=== PATIENT | male | born 1950 | race Caucasian/White ===

== ENCOUNTER 2016-06-13 16:17 | Emergency (ER) | payer OTHER ==
[2016-06-13 16:24] VITALS: BP 175/81; PULSE 98; RESP 20; TEMP 98.6; O2SAT 96
--- NOTE | 2016-06-13 16:42 | EDPHY ---
H & P Time Seen by Provider: 06/13/16 16:41 HPI/ROS: CHIEF COMPLAINT: Low back pain, left leg pain HISTORY OF PRESENT ILLNESS: This patient is a 66 year old male with a history of spinal stenosis who presents to the Emergency Department complaining of waxing and waning low back and left leg pain beginning acutely ten days ago and improving over time until yesterday, when his pain presented again at severity 7 /10. He is unsure of what caused the onset of his symptoms. He describes the location of pain as variable from his calf, thigh, and low back. He has been using ice and Aleve to treat without significant improvement. He denies any bowel or urinary complaints. He is followed by Dr. Macario and presents with an MRI disc from two years ago. Medical history also includes insulin-dependent diabetes. REVIEW OF SYSTEMS: Constitutional: No fever, no chills Eyes: No visual changes ENT: No sore throat Respiratory: No cough, no shortness of breath Cardiac: No chest pain Gastrointestinal: No nausea, no vomiting, no abdominal pain Genitourinary: No hematuria, no dysuria Musculoskeletal: +low back pain, +left leg pain, no swelling Skin: No rash Neurological: No headache, no numbness, no weakness Psychiatric: No depression Past Medical/Surgical History: Spinal stenosis. Type 2 diabetes (insulin). Social History: Never smoked. Single. Smoking Status: Never smoked Physical Exam: General Appearance: Alert, appears in pain Eyes: Pupils equal and round, no conjunctival pallor ENT, Mouth: Mucous membranes moist Neck: Normal inspection Back: Normal inspection, Left lumbar paraspinous tenderness, no midline tenderness Respiratory: Lungs are clear to auscultation Cardiovascular: Regular rate and rhythm Gastrointestinal: Abdomen is soft and non- tender Neurological: A&O, nonfocal, normal motor strength bilaterally to lower extremities, including dorsiflexion of the ankle and 1st toe, normal gait Skin: Warm and dry, no rash Extremities: Nontender, no pedal edema Psychiatric: Mood and affect normal Constitutional: Initial Vital Signs Temperature (C) 37 C 06/13/16 16:20 Heart Rate 98 06/13/16 16:20 Respiratory Rate 20 06/13/16 16:20 Blood Pressure 175/81 H 06/13/16 16:20 O2 Sat (%) 96 06/13/16 16:20 Allergies/Adverse Reactions: Penicillins Allergy (Verified 08/23/10 15:20) Home Medications: Medication Instructions Recorded Cephalexin [Keflex] 500 mg PO QID #40 cap 08/19/10 Ibuprofen [Motrin (*)] 600 mg PO 08/19/10 Insulin Glargine [Lantus Insulin 60 unit SQ HS 08/19/10 Vial] Lisinopril/Hctz 10/12.5 mg 0 tab PO 08/19/10 [Prinzide] Metformin HCl [Metformin Hcl Er] 2 g PO 08/19/10 SIMVASTATIN [Zocor] 40 mg PO 08/19/10 Sulfamethox/Trimeth 800/160 Mg 1 tab PO BID 10 Days 08/19/10 [Bactrim DS] Hydrocodone/APAP 5/325 [[place] 1 - 2 tab PO Q4H PRN #15 tab 06/13/16 5/325] Medical Decision Making ED Course/Re-evaluation: 1 tab PO Vicodin administered for pain. I discussed with the patient that long-term treatment of his symptoms can best be addressed by Dr. Macario. He will call to schedule an appointment while in the ED. He will be discharged home in good condition with a pre-pack and script for Vicodin and customary return precautions. He is agreeable to this. - Data Points Medications Given: Discontinued Medications Hydrocodone Bitart/Acetaminophen ([place] 5/325) 1 tab PO EDNOW ONE Stop: 06/13/16 16:58 Last Admin: 06/13/16 17:14 Dose: 1 tab Hydrocodone Bitart/Acetaminophen ([place] 5/325mg Prepack#6) 1 btl TAKEHOME EDNOW ONE Stop: 06/13/16 16:58 Last Admin: 06/13/16 17:13 Dose: 1 btl Departure - Departure Disposition: Home, Routine, Self-Care Clinical Impression: Lumbar radicular pain Condition: Good Instructions: Hydrocodone/Acetaminophen (By mouth), Lumbar Radiculopathy (ED) Additional Instructions: 1. Take Aleve every 12 hours as needed for pain OR take Ibuprofen every 6 hours as needed for pain. Do not take both. 2. Take Vicodin as prescribed, as needed for severe pain. 3. Call to schedule an appointment with Dr. Macario as soon as possible. 4. Return to the Emergency Department with uncontrollable pain, bowel or urinary incontinence, or other serious complaints. Referrals: Del Macario MD [Medical Doctor] - As per Instructions Prescriptions: Hydrocodone/APAP 5/325 [[place] 5/325] 1 - 2 tab PO Q4H PRN #15 tab PRN Reason: Pain, Moderate Report Scribed for: Lori Call Report Scribed by: Rachel Simmons Date of Report: 06/13/16 Time of Report: 16:42 Physician Review and Approval Statement: 06/13/16 16:42 Portions of this note were transcribed by a medical records director. I personally performed a history, physical exam, medical decision making, and confirmed accuracy of information the transcribed note.
[2016-06-13] MEDS ORDERED: HYDROCODONE/APAP 5/325 TAB PO ONE (16:57)
[2016-06-13] MEDS ORDERED: HYDROCOD/APAP 5/325 PREPACK#6 BTL TAKEHOME ONE (16:57)
== END 2016-06-13 17:15 | disposition home or self-care (01) ==
DX: M54.16 Radiculopathy, lumbar region (principal); E11.9 Type 2 diabetes mellitus without complications; Z79.4 Long term (current) use of insulin

== ENCOUNTER 2017-03-23 11:23 | Emergency (ER) | payer OTHER ==
[2017-03-23 11:34] VITALS: RESP 18; TEMP 97.5
--- NOTE | 2017-03-23 11:35 | EDPHY ---
H & P Stated Complaint: blurred vision, low blood sugar, from urgent care, HPI/ROS: CHIEF COMPLAINT: Blurred vision, hypoglycemia HISTORY OF PRESENT ILLNESS: The patient is a 67 y/o male with a history of diabetes complaining of blurred vision and dizziness that began while driving to the grocery store this morning. He felt like his right eye was "jumping" back and forth and he became scared he was having a stroke so he drove to urgent care. Urgent care transferred him to the ED via EMS due to a blood sugar level of 50. He tells me he's been feeling poorly with a cough and a reduced appetite for the last week and didn't check his sugar this morning. He saw his PCP for preoperative evaluation for upcoming lumbar spine surgery and had a normal chest x-ray at that time. This morning, he took his long-acting insulin and did not eat. He currently is feeling quite good after eating in the ED and believes all his symptoms were related to low blood glucose. He denies fever, sore throat, chest pain, dyspnea, headache, dysuria, abdominal pain, vomiting, diarrhea. REVIEW OF SYSTEMS: A ten point review of systems was performed and is negative with the exception of the items mentioned in the HPI. Past medical history: 1. Diabetes - insulin dependent 2. Spinal stenosis 3. SVT 4. Hypertension 5. Hypercholesterolemia Past surgical history: Noncontributory Family history: Noncontributory Social history: Lives in [place]. Employed. Single. PCP: [facility]. General Appearance: Alert. Vital signs reviewed. Eyes: Pupils equal and round, no conjunctival injection, no discharge. Anicteric. ENT, Mouth: Mucous membranes are moist, no oropharyngeal erythema or edema. Neck: No lymphadenopathy, supple. Respiratory: Lungs are clear to auscultation; no wheezes, rales, or rhonchi. Cardiovascular: Regular rate and rhythm; no murmur, rub, or gallop. Gastrointestinal: Abdomen is soft and nontender, no masses or organomegaly, bowel sounds normal. Easily reducible umbilical hernia. Skin: Warm and dry, no rashes on exposed skin, normal color. Back: Nontender to palpation over the thoracolumbar spine. No CVAT. Extremities: No lower extremity edema, no calf tenderness or swelling. Neurological: Alert and oriented. Moving all four extremities easily and equally. Cranial nerves II through XII are examined and are intact. Strength is 5 over 5 bilaterally with testing of all major motor groups. Sensation is intact to light touch over all 4 extremities. Psychiatric: Normal affect. - Personal History Current Tetanus Diphtheria and Acellular Pertussis (TDAP): Yes Tetanus Vaccine Date: 2008 - Medical/Surgical History Hx Asthma: No Hx Chronic Respiratory Disease: No Hx Diabetes: Yes Hx Cardiac Disease: Yes Hx Renal Disease: Yes Hx Cirrhosis: No Hx Alcoholism: No Hx HIV/AIDS: No Hx Splenectomy or Spleen Trauma: No Other PMH: diabetes type 2, SVT, stage 3 kidney disease. ortho surgeries - Social History Smoking Status: Never smoked Constitutional: Initial Vital Signs Temperature (C) 36.4 C 03/23/17 11:28 Heart Rate 73 03/23/17 11:28 Respiratory Rate 18 03/23/17 11:28 Blood Pressure 118/60 03/23/17 11:28 O2 Sat (%) 97 03/23/17 11:28 O2 Delivery Mode Room Air Allergies/Adverse Reactions: No Known Allergies Allergy (Unverified 03/23/17 11:28) Home Medications: Medication Instructions Recorded Ascorbic Acid [Vitamin C 500 mg 1,000 mg PO DAILY 03/25/17 (*)] Aspirin [Aspirin 81mg (*)] 81 mg PO DAILY 03/25/17 Cholecalciferol Vit D3 [Vitamin D3 4,000 units PO DAILY 03/25/17 (*)] Dulaglutide [Trulicity] 1.5 mg SQ Q7D 03/25/17 Fenofibric Acid (Choline) 135 mg PO DAILY 03/25/17 [TRILIPIX] Glucosamine Sulfate Dipot Chlr 1,000 mg PO DAILY 03/25/17 [Glucosamine] Herbals/Supplements -Info Only 1 ea PO DAILY 03/25/17 Hydrochlorothiazide [HCTZ (*)] 25 mg PO DAILY 03/25/17 Insulin Glargine,Hum.rec.anlog 50 unit SQ BID 03/25/17 [Lantus Solostar] Insulin Lispro [HumaLOG LISPRO] 0 unit SC AD 03/25/17 Lisinopril [Zestril 40 mg (*)] 40 mg PO BID 03/25/17 Loratadine 10 mg PO DAILY 03/25/17 Ranitidine HCl [Zantac] 150 mg PO DAILY 03/25/17 Rosuvastatin Calcium [Crestor] 10 mg PO DAILY 03/25/17 metFORMIN SR [Glucophage XR 500 mg 500 mg PO BID 03/25/17 (*)] Medical Decision Making ED Course/Re-evaluation: This is a 67 y/o male with a history of insulin-dependent diabetes who presents for evaluation of vision changes and dizziness that occurred while driving this morning. He used his long-acting insulin this morning and did not eat. His initial BGL here was 45. I assessed him after eating and he is now feeling back to normal. He has a completely normal neuro exam. Apart from hypoglycemia, labs are unremarkable. EKG normal. Patient feels ready to go home at this time. Plan for repeat BGL and if normal, discharge home. The 12 lead EKG was interpreted by myself. Sinus mechanism rate 72. See hard copy and/or "tracemaster" electronic copy for interpretation. Repeat BGL is 124. He was observed in the ED for over three hours with no change in mentation, no symptoms reported. Patient will be discharged home with standard hypoglycemia care and follow up instructions. Return precautions discussed. He is comfortable with plan for discharge. I feel that his altered mental status and blurred vision was secondary to hypoglycemia. I do not suspect infection, CVA/TIA, electrolyte imbalance, intoxicants. - Data Points Laboratory Results: Laboratory Results 03/23/17 12:35 03/23/17 12:35 Departure - Departure Disposition: Home, Routine, Self-Care Clinical Impression: Hypoglycemia Condition: Good Instructions: Hypoglycemia in a Person with Diabetes (ED) Additional Instructions: 1. Eat regularly. 2. Check your blood sugar consistently throughout the day. 3. Use all medications as directed. 4. Follow up with your primary care provider for any unimproved symptoms over the next couple days. 5. Return to the ED for severe headache, weakness or numbness on one side of your body, vision changes, speech difficulty, confusion, or other worsening of condition. Referrals: Kai Gaona [Doctor of Osteopathy] - As per Instructions Report Scribed for: Janay Washington Report Scribed by: Bridget Weinberg Date of Report: 03/23/17 Time of Report: 13:34 Physician Review and Approval Statement: 03/23/17 11:35 Portions of this note were transcribed by the ophthalmic medical technician. I, Dr. Janay Washington, personally performed the history, physical exam, and medical decision- making; and confirmed the accuracy of the information in the transcribed note.
[2017-03-23 12:42] LABS: PLATELET COUNT 164 10^3/uL (150-400)
--- NOTE | 2017-03-23 12:43 | CPEKG ---
Heart Rate: 72 RR Interval: 833 P-R Interval: 200 QRSD Interval: 92 QT Interval: 408 QTC Interval: 447 P Royal: 64 QRS Royal: 12 T Wave Royal: 22 EKG Severity - NORMAL ECG - EKG Impression: SINUS RHYTHM Electronically Signed By: Janay Washington 23-Mar-2017 15:00:17
[2017-03-23 12:46] VITALS: O2SAT 99
[2017-03-23 14:42] VITALS: BP 167/87; PULSE 79
== END 2017-03-23 14:42 | disposition home or self-care (01) ==
LOC: EDUNIT#
DX: E11.649 Type 2 diabetes mellitus with hypoglycemia without coma (principal); I10 Essential (primary) hypertension; Z79.4 Long term (current) use of insulin; Z79.82 Long term (current) use of aspirin; Z79.84 Long term (current) use of oral hypoglycemic drugs

== ENCOUNTER 2017-04-24 09:45 | Observation (INO) | payer OTHER ==
[2017-07-22] MEDS ORDERED: ceFAZolin 2 GM/SWFI 2 GM/20 ML SYR IVP ONE (05:46)
[2017-07-22] MEDS ORDERED: GABAPENTIN 300 MG CAP PO ONE (05:46)
[2017-07-22] MEDS ORDERED: ACETAMINOPHEN 500 MG TAB PO ONE (05:46)
[2017-07-22] MEDS ORDERED: LIDOCAINE 1% 2 ML INJ ID PRN (05:48)
[2017-07-22] MEDS ORDERED: LR 1,000 ML IV ONE (05:48)
--- NOTE | 2017-07-22 06:26 | PDANEPAE ---
ANE History of Present Illness L3-4, L4-5 laminectomy ANE Past Medical History - Cardiovascular History Hx Hypertension: Yes Hx Arrhythmias: Yes Hx Chest Pain: No Hx Coronary Artery / Peripheral Vascular Disease: Yes Hx CHF / Valvular Disease: No Hx Palpitations: No Cardiovascular History Comment: SVT - Pulmonary History Hx COPD: No Hx Asthma/Reactive Airway Disease: No Hx Recent Upper Respiratory Infection: No Hx Oxygen in Use at Home: No Hx Sleep Apnea: Yes Sleep Apnea Screening Result - Last Documented: Positive Pulmonary History Comment: BETI USES C-PAP INSTRUCTED TO BRING DOS - Neurologic History Hx Cerebrovascular Accident: No Hx Seizures: No Hx Dementia: No - Endocrine History Hx Diabetes: Yes Hypothyroid: No Hyperthyroid: No Obesity: severe Endocrine History Comment: IDDM CHECKS BS TWICE A DAY - Renal History Hx Renal Disorders: Yes Renal History Comment: CHRONIC RENAL INSUFFICIENCY STAGE 3 - Liver History Hx Hepatic Disorders: Yes Hepatic History Comment: HEP A AGE 9 - Neurological & Psychiatric Hx Hx Neurological and Psychiatric Disorders: No - Cancer History Hx Cancer: No - Congenital Disorder History Hx Congenital Disorders: No - GI History GERD: severe Hx Gastrointestinal Disorders: Yes Gastrointestinal History Comment: REFLUX - Other Health History Other Health History: DIFFICULT TO SLEEP ON STOMACH TENDS TO SLEEP ON HIS SIDES. IMANI SHLDR ISSUES HAS RT TORN RTC. SPONDYLOSIS,CDD,DDD - Chronic Pain History Chronic Pain: Yes (IMANI SHLDRS,TINGLING LOWER EXT AND LT LEG PAIN,INTERMITTENT BALANCE ISSUES) - Surgical History Prior Surgeries: LT ROTATOR CUFF 2014. LT SHLDR POST I&D. RT FOOT BONE RECONSTRUCTION FOOT. ANE Review of Systems Review of Systems: - Exercise capacity METS (RN): 4 METS ANE Patient History - Allergies Allergies/Adverse Reactions: No Known Allergies Allergy (Unverified 03/23/17 11:28) - Home Medications Home Medications: Ascorbic Acid [Vitamin C 500 mg (*)] 1,000 mg PO DAILY 03/25/17 [Last Taken ] Aspirin [Aspirin 81mg (*)] 81 mg PO DAILY 03/25/17 [Last Taken 07/15/17] Cholecalciferol Vit D3 [Vitamin D3 (*)] 5,000 units PO DAILY 03/25/17 [Last Taken 07/16/17] Dulaglutide [Trulicity] 1.5 mg SQ Q7D 03/25/17 [Last Taken 07/20/17] Fenofibric Acid (Choline) [TRILIPIX] 135 mg PO DAILY 03/25/17 [Last Taken ] Glucosamine Sulfate Dipot Chlr [Glucosamine] 1,000 mg PO DAILY 03/25/17 [Last Taken 07/16/17] Herbals/Supplements -Info Only 1 ea PO DAILY 03/25/17 [Last Taken 07/16/17] Hydrochlorothiazide [HCTZ (*)] 25 mg PO DAILY 03/25/17 [Last Taken 07/21/17 09: 00] Insulin Lispro [HumaLOG LISPRO] 0 unit SC AC 03/25/17 [Last Taken 07/21/17 19:00 ] Lisinopril [Zestril 40 mg (*)] 40 mg PO BID 03/25/17 [Last Taken 07/21/17 22:00] Loratadine 10 mg PO DAILY 03/25/17 [Last Taken 07/21/17 09:00] Ranitidine HCl [Zantac] 150 mg PO BID 03/25/17 [Last Taken 07/20/17] Rosuvastatin Calcium [Crestor] 10 mg PO DAILY 03/25/17 [Last Taken 07/21/17 09: 00] metFORMIN SR [Glucophage XR 500 mg (*)] 500 mg PO BID 03/25/17 [Last Taken 07/20] Atenolol [Tenormin 25 mg (*)] 25 mg PO DAILY 07/17/17 [Last Taken 07/21/17 09:00 ] Tresiba Flextouch U-100 45 units SC BID 07/17/17 [Last Taken 07/22/17 04:00] - NPO status NPO Since - Liquids (Date): 07/21/17 NPO Since - Liquids (Time): 22:00 NPO Since - Solids (Date): 07/21/17 NPO Since - Solids (Time): 21:00 - Smoking Hx Smoking Status: Never smoked - Family Anes Hx Family Hx Anesthesia Complications: NEG ANE Labs/Vital Signs - Vital Signs Blood Pressure: 150/71 Heart Rate: 84 Respiratory Rate: 18 O2 Sat (%): 96 Height: 173.99 cm Weight: 117.934 kg ANE Physical Exam - Airway Neck exam: decreased ROM Mallampati Score: Class 2 Mouth exam: normal dental/mouth exam (lower front caps) - Pulmonary Pulmonary: clear to auscultation - Cardiovascular Cardiovascular: regular rate and rhythym - ASA Status ASA Status: III ANE Anesthesia Plan Anesthesia Plan: general endotracheal anesthesia (Increased risk of perioperative complications discussed. Questions answered.)
--- NOTE | 2017-07-22 06:27 | PDHPUP ---
History & Physical Update H&P update statement: This history and physical update is based on an assessment of the patient which was completed after admission or registration (within 24 hours), but prior to the surgery/procedure. H&P update: H&P reviewed & patient examined, no change in patient's condition since H&P completed (Consents signed and site marked. All questions answered. )
[2017-07-22] MEDS ORDERED: THROMBIN (BOVINE) 20,000 UNIT VIAL TP ONE ×2 (06:36→08:59)
[2017-07-22] MEDS ORDERED: CHLORHEXIDINE GLUC HIBICLENS 118 ML BTL TP ONE (06:36)
[2017-07-22] MEDS ORDERED: BUPIVACAINE 0.25% 30 ML SDV ONE (06:37)
[2017-07-22] MEDS ORDERED: BACITRACIN 50,000 UNITS/10 ML SYR IRR ONE ×2 (06:37→09:15)
[2017-07-22] MEDS ORDERED: MIDAZOLAM 2 MG/2 ML VIAL ONE (07:13)
[2017-07-22] MEDS ORDERED: KETAMINE 200 MG/20 ML VIAL ONE (07:14)
[2017-07-22] MEDS ORDERED: PROPOFOL/EMULSION 500 MG/50 ML BOTTLE IV ONE (07:14)
[2017-07-22] MEDS ORDERED: fentaNYL 250 MCG/5 ML INJ ONE (07:14)
[2017-07-22] MEDS ORDERED: RANITIDINE 50 MG/2 ML VIAL ONE (07:15)
[2017-07-22] MEDS ORDERED: ROCURONIUM 50 MG/5 ML VIAL ONE (07:15)
[2017-07-22] MEDS ORDERED: DEXAMETHASONE 4 MG/ML VIAL ONE (07:15)
[2017-07-22] MEDS ORDERED: PHENYLEPHRINE 10 MG/ML SDV ONE (07:26)
[2017-07-22] MEDS ORDERED: SURGIFLO MATRIX KIT WITH THROMBIN 8 ML TP ONE (08:54)
[2017-07-22] MEDS ORDERED: PROPOFOL 200 MG/20 ML VIAL ONE (08:55)
[2017-07-22] MEDS ORDERED: HYDROmorphONE/DILAUDID 2 MG/ML INJ IVP PRN (09:35)
[2017-07-22] MEDS ORDERED: ONDANSETRON 4 MG/2 ML VIAL IVP PRN ×2 (09:35→10:15)
[2017-07-22] MEDS ORDERED: fentaNYL 100 MCG/2 ML INJ IVP PRN (09:35)
[2017-07-22] MEDS ORDERED: NALOXONE HCL 0.4 MG/ML INJ IVP PRN (09:35)
[2017-07-22] MEDS ORDERED: ONDANSETRON 4 MG/2 ML VIAL ONE (09:41)
[2017-07-22] MEDS ORDERED: NEOSTIGMINE METHYLSULFATE 3 MG/3 ML SYR ONE (09:42)
[2017-07-22] MEDS ORDERED: GLYCOPYRROLATE 0.2 MG/1 ML VIAL ONE (09:42)
[2017-07-22] MEDS ORDERED: BACITRACIN ZINC 14.2 GM OINTTUBE TP ONE (09:57)
[2017-07-22] MEDS ORDERED: D50W 25 GM/50 ML SYR IVP PRN (10:12)
[2017-07-22] MEDS ORDERED: oxyCODONE IR 5 MG TAB PO PRN (10:15)
[2017-07-22] MEDS ORDERED: PROMETHAZINE HCL 25 MG/ML INJ IVP PRN (10:15)
[2017-07-22] MEDS ORDERED: NS W/ 20 KCl/L 1,000 ML IV SCH (10:15)
[2017-07-22] MEDS ORDERED: POLYETHYLENE GLYCOL 3350 17 GM PKT PO PRN (10:15)
[2017-07-22] MEDS ORDERED: BISACODYL 10 MG SUPP PR PRN (10:15)
[2017-07-22] MEDS ORDERED: ONDANSETRON DISINTEGRATING 4 MG TAB PO PRN (10:15)
[2017-07-22] MEDS ORDERED: METHOCARBAMOL 750 MG TAB PO PRN (10:15)
[2017-07-22] MEDS ORDERED: MAGNESIUM HYDROXIDE 30 ML UDCUP PO PRN (10:15)
[2017-07-22] MEDS ORDERED: LACTULOSE 20 GM/30 ML UDCUP PO PRN (10:15)
[2017-07-22] MEDS ORDERED: diphenhydrAMINE 25 MG CAP PO PRN (10:15)
[2017-07-22] MEDS ORDERED: HYDROmorphone HCL/NS 0.5 MG/ML SYR IVP PRN (10:15)
--- NOTE | 2017-07-22 10:24 | POSTOPPROG ---
Post Op Note Date of Operation: 07/22/17 Surgeon: Del Macario Strike Out Machine Operator: Andria Ravi PA-C Anesthesiologist: Patrick Anesthesia: GET(General Endotracheal) Pre-op Diagnosis: lumbar stenosis Post-op Diagnosis: same Indication: nerve compression Procedure: L3-5 laminectomy Findings: nerve compression Inf/Abcess present in the surg proc area at time of surgery?: No Depth: Organ Space EBL: 100-500 Complications: none Drains: Graham Guzman Specimen(s): none PA Addendum - Addendum .: S: Pt awake in PACU, denies pain O: Sleepy but awakens easily NAD VSS MAEx4 Motor 5/5 BUE/BLE JPx1 Dressing in place cdi A: 67 yo m s/p L3-5 laminectomy P: Pain management Hospitalists consulted for assistance with managing DMII and kidney function Sliding scale insulin ordered, long acting insulin reordered home dose PT/OT TEDs, SCDs, lovenox POD#1 Call NS with any Qs or issues D/w Dr Macario
--- NOTE | 2017-07-22 11:43 | GOP ---
[f rep st] OPERATIVE REPORT DATE OF OPERATION: 07/22/2017 SURGEON: Del Macario MD ELECTRICAL LINE SPLICER: JOHN Morgan ANESTHESIA: General. PREOPERATIVE DIAGNOSIS: 1. L3-L4 and L4-L5 lumbar spondylosis with spinal stenosis. 2. Lower extremity radiculopathy. 3. Low back pain. 4. Treatment refractory to nonoperative intervention. POSTOPERATIVE DIAGNOSIS: 1. L3-L4 and L4-L5 lumbar spondylosis with spinal stenosis. 2. Lower extremity radiculopathy. 3. Low back pain. 4. Treatment refractory to nonoperative intervention. PROCEDURE PERFORMED: 1. Decompressive laminectomy with bilateral medial facetectomies and foraminotomies L3-L4 and L4-L5. 2. Use of intraoperative fluoroscopy, less than 1 hour physician time. 3. Use of neuromonitoring. FINDINGS: per imaging SPECIMENS: None. ESTIMATED BLOOD LOSS: 400 mL. COMPLICATIONS: None. INDICATIONS: The patient is a 67-year-old gentleman, who unfortunately has been suffering from a longstanding history of low back pain with progressive lower extremity radiculopathy with weakness. Imaging studies demonstrated severe spinal stenosis at L4-L5 and moderate to severe stenosis at L3-L4. After discussion of the risks, benefits, and treatment alternatives, we decided to proceed forth with surgery as described above. DESCRIPTION OF PROCEDURE: The patient was brought to the operating theater and underwent general endotracheal anesthesia without complications. He had Venodynes, CARLOTTA hose, and appropriate lines placed by Anesthesia. He was flipped prone onto the Isaac frame and all bony processes inspected and padded. The lower lumbar region was prepped and draped in the usual sterile surgical fashion. A time-out was completed per protocol and the patient received antibiotics within 1 hour of incision. Using lateral fluoroscopy and a spinal needle, we picked our entry point to the L3 through L5 levels. This was marked in the midline and the incision infiltrated with Marcaine with epinephrine. The incision was taken down with the scalpel blade and then, using monopolar, taken down the midline through the lumbodorsal fascia. A subperiosteal dissection was carried to the medial facet joints of L3-4 and L4-5. The L3-L4 facet joint was noted to be severely hypertrophied on the right side. We again confirmed our level using lateral fluoroscopy. Using a combination of the bur tip on the drill bit, Kerrison punches, and Leksell rongeur, we completed a decompressive laminectomy with bilateral medial facetectomies, L3-L4 and L4-L5. I reached out into the foramina as well and continued foraminotomies with the Kerrison punches until they felt decompressed on manual palpation. At this point, we irrigated the wound copiously with bacitracin irrigation and left a drain in the subfascial space. The wound was then closed in multiple layers including Vicryl sutures for the deep layers and Dermabond for the skin. The patient's wounds were dressed sterilely. He was then flipped supine onto the transfer cart, where he was awakened, extubated, and taken to the recovery room in stable condition. There were no complications. No noted changes on neuromonitoring throughout the procedure. /[id number]/MODL MTDD
[2017-07-22] MEDS: INSULIN LISPRO 100 UNIT/ML SC SCH ×2 (13:46→18:26)
[2017-07-22] MEDS: ACETAMINOPHEN 500 MG TAB PO SCH ×2 (13:47→21:35)
--- NOTE | 2017-07-22 14:55 | GCON ---
[f rep st] CONSULTATION DATE OF CONSULTATION: 07/22/2017 REASON FOR CONSULTATION: The patient is a 67-year-old male with multiple medical comorbidities, who was admitted to the hospital by the neurosurgery service for elective lumbar laminectomy. Medicine c onsultation is requested postoperatively to assist with management of diabetes, hypertension, hyperli pidemia, chronic kidney disease, and sleep apnea. HISTORY OF PRESENT ILLNESS: The patient is a 67-year-old male with a history of chronic low back carley n in the setting of spinal stenosis. In addition, he has insulin-dependent diabetes, hypertension, h yperlipidemia, obesity, and sleep apnea. He is followed by Dr. Rocio Drummond from [facility] fo r chronic kidney disease and has a baseline creatinine of 1.4 to 1.5. He reports he has been quite s edentary for a number of years related to his back pain. His specific concerns are what type of mobi lity he can achieve in the postoperative setting. In addition, he is extra vigilant about monitoring for infection of previous shoulder hardware. He denies fevers, chills, or specific pain in his shou lder joint. He has no chest pain, shortness of breath. He underwent lumbar laminectomy this morning by Dr. Macario, and his postoperative recovery thus far is relatively unremarkable. He is mildly hy poxemic requiring 1 L of oxygen currently. His pain is controlled. PAST MEDICAL HISTORY: 1. Type 2 diabetes. Most recent A1c greater in February 2017 was 6.4; this is down from 10. 2. Hypertension. 3. Hyperlipidemia. 4. Obstructive sleep apnea. 5. Obesity. 6. History of SVT. 7. Chronic kidney disease with baseline creatinine of 1.4 to 1.5, followed by Dr. Rocio Drummond at [facility]. MEDICATIONS: Please see Sedim[facility] completed outpatient medication list. ALLERGIES: He has no known drug allergies. Positive for coronary artery disease and diabetes. SOCIAL HISTORY: The patient lives independently. 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 He reports occasional alcohol. He denies tobacco or drug use. REVIEW OF SYSTEMS: A 10-point review of systems was performed and was negative except as per HPI. PHYSICAL EXAMINATION: VITAL SIGNS: Temperature is 36.5, blood pressure 110/63, heart rate 79, respi ratory rate 18. He is currently 94% on 1 L of oxygen nasal cannula. GENERAL: Patient is awake, shara rt, and oriented in no acute distress. HEENT: Head is atraumatic, normocephalic. Pupils are equal, round, and reactive to light. Extraocular muscles intact. Oropharynx is clear. Mucous membranes a re moist. NECK: Supple. There is no JVD. HEART: Regular rate and rhythm without murmur. LUNGS: Reveal diminished breath sounds at the bases. Otherwise clear to auscultation without wheezes, rale s, or rhonchi. ABDOMEN: Soft, obese, nondistended, nontender with normoactive bowel sounds. EXTREM ITIES: Without cyanosis, clubbing, or edema. NEUROLOGIC: Grossly nonfocal. LABORATORY DATA: He had a CBC 4 days ago, which was completely normal. Basic metabolic panel comple romeo July 18 shows a creatinine of 1.5, BUN of 35, and potassium of 5. His blood sugars here have been in the 100s. ASSESSMENT AND PLAN: The patient is a 67-year-old male with multiple medical problems, who is admitt ed to the hospital for elective laminectomy in the setting of spinal stenosis and lumbar radiculopath y. 1. Lumbar radiculopathy secondary to spinal stenosis, status post elective laminectomy. Postoperati ve course is thus far unremarkable. Further postoperative care per the Neurosurgery Service. Physic al therapy and occupational therapy evaluations are planned. He may require rehabilitation. 2. Diabetes mellitus, type 2. His last A1c was 6.4. We will recheck his A1c to assess overall cont rol, though his blood sugars since admission have been in the 100s. We will continue his current dos e of Tresiba 45 units twice daily along with sliding scale insulin. I am holding his metformin, give n his creatinine recently has been greater than 1.5. We will continue his dulaglutide as well and pr ovide q.a.c. h.s. sliding scale insulin. 3. Chronic kidney disease. His baseline creatinine is 1.4 to 1.5. I have noticed in the past sever al months he has been 1.5 to 1.7. I have thus held his metformin and decreased his lisinopril from 4 0 mg twice daily to 40 mg once daily, as I think he is unlikely to have benefit from the higher dose. He may be at risk for electrolyte abnormalities. We will check a basic metabolic panel now to reas sess his electrolytes and creatinine and follow this during his hospitalization. 4. Hypertension. He has actually been a bit hypotensive postoperatively in the 90s over 50s. As ab badillo, I have decreased his lisinopril dose. We will also write hold parameters on his atenolol, hydro chlorothiazide, and lisinopril, deferring these doses if his systolic blood pressure is less than 110 . 5. Hyperlipidemia. Continue statin. 6. Obstructive sleep apnea. Continue home CPAP. 7. Obesity. This complicates all aspects of care. 8. History of supraventricular tachycardia. Continue atenolol. 9. Deep venous thrombosis prophylaxis Lovenox. CODE STATUS: The patient is full code. DISPOSITION: Patient admitted to observation status. We will continue to assess his postoperative r ecovery course and possible need for ongoing hospitalization versus longterm facility rehabili tation. Thank you very much for this consultation. Please do not hesitate to call if there are any further q uestions or concerns. /[id number]/MODL
[2017-07-22] MEDS: POLYETHYLENE GLYCOL 3350 17 GM PKT PO SCH ×2 (15:58→21:38)
[2017-07-22] MEDS: ceFAZolin 2 GM/SWFI 2 GM/20 ML SYR IVP SCH ×2 (15:58→23:37)
--- NOTE | 2017-07-22 18:43 | POSTANESTH ---
Post Anesthetic Evaluation Cardiovascular Status: Similar to Pre-Op Cond Respiratory Status: Similar to Pre-op Cond. Level of Consciousness/Mental Status: Can Participate in Eval Pain Control: Adequate, Prn Tx Ordered Nausea/Vomiting Control: Adequate, Prn Tx Ordered Complications Possibly Related to Anesthesia: None Noted
[2017-07-22] MEDS ORDERED: NON-FORMULARY NEW DRUG (Ranitidine Hcl [Zantac] 150 MG) PO SCH (21:00)
[2017-07-22] MEDS ORDERED: LISINOPRIL 40 MG TAB PO SCH (21:00)
[2017-07-22] MEDS: INSULIN DEGLUDEC SC SCH (21:23)
[2017-07-22] MEDS: [UNRECOGNIZED DRUG - OTHER] SC SCH (21:23)
[2017-07-22] MEDS: SENNOSIDES/DOCUSATE SODIUM TAB PO SCH (21:24)
[2017-07-22] MEDS: FAMOTIDINE 20 MG TAB PO SCH (21:24)
[2017-07-23 05:10] LABS: PLATELET COUNT 167 10^3/uL (150-400)
[2017-07-23] MEDS: ACETAMINOPHEN 500 MG TAB PO SCH (06:25)
--- NOTE | 2017-07-23 07:02 | NEUSURGPN ---
Date of Surgery: 07/22/17 Post Op Day: 1 Assessment/Plan: Assessment: 67 yo m s/p L3-5 laminectomy POD #1 Plan: -Pain management-CPM -Hospitalists consulted for assistance with managing DMII and kidney function -ok from NS standpoint for dc today pending approval from IM and PT/OT -CHAYA to be removed at 1000 -Sliding scale insulin ordered, long acting insulin reordered home dose -PT/OT to eval this am and clear for dc -TEDs, SCDs, lovenox POD#1 -Call NS with any questions or issues -d/w Dr Macario Subjective: Awake and alert. NAD. Eating/drinking and voiding. No f/c/n/v/d. Objective: NAD AFVSS MAEx4 Motor 5/5 BUE/BLE JPx1 Dressing in place cdi Neuro Check Frequency: per routine Urinary Catheter in Place: No - Physician Discussed Patient with : [facility] Physical Exam - Vitals, I&O, Labs I and O 07/22/17 07/23/17 07/24/17 05:59 05:59 05:59 Intake Total 3380 Output Total 845 Balance 2535 Weight 117.934 kg Intake: Oral (ml) 1530 IV Intake (ml) 1200 IV Infused (ml) 650 Lr 1,000 ml @ KVO IV ONCE 650 ONE Rx#:[id number] Output: Urine (ml) 150 Urinal 150 Estimated Blood Loss (ml) 400 CHAYA Drain Output (ml) 295 Posterior Back Graham 295 Guzman Other: Intake Quantity Yes Sufficient Number of Voids Toilet 1 Urinal 1 Bladder Scan Volume (ml) Urinal 308 Microbiology 07/22/17 08:30 Gram Stain - Final Other - Swab Vital Signs Temp Pulse Resp BP Pulse Ox 36.3 C 72 16 107/83 H 97 07/23/17 04:43 07/23/17 04:43 07/23/17 04:43 07/23/17 04:43 07/23/17 04:43 Laboratory Results 07/23/17 04:39 07/23/17 04:39 ICD10 Worksheet Patient Problems: Problems Problem Status Onset Lumbar radicular pain Acute Lumbar stenosis Acute - ICD10 Problem Qualifiers (1) Lumbar stenosis (2) Lumbar radicular pain
[2017-07-23] MEDS: INSULIN LISPRO 100 UNIT/ML SC SCH ×2 (08:09→13:01)
[2017-07-23] MEDS: FAMOTIDINE 20 MG TAB PO SCH (08:11)
[2017-07-23] MEDS: SENNOSIDES/DOCUSATE SODIUM TAB PO SCH (08:12)
[2017-07-23] MEDS: POLYETHYLENE GLYCOL 3350 17 GM PKT PO SCH (08:14)
[2017-07-23] MEDS: [UNRECOGNIZED DRUG - OTHER] SC SCH (08:19)
[2017-07-23] MEDS: INSULIN DEGLUDEC SC SCH (08:19)
[2017-07-23] MEDS ORDERED: CHOLECALCIFEROL VIT D3 2,000 UNITS TAB/CAP PO SCH (09:00)
[2017-07-23] MEDS ORDERED: CETIRIZINE 10 MG TAB PO SCH (09:00)
[2017-07-23] MEDS ORDERED: NON-FORMULARY NEW DRUG (Loratadine [Loratadine] 10 MG) PO SCH (09:00)
[2017-07-23] MEDS ORDERED: FENOFIBRIC ACID 135 MG PO SCH (09:00)
[2017-07-23] MEDS ORDERED: HYDROCHLOROTHIAZIDE 25 MG TAB PO SCH (09:00)
[2017-07-23] MEDS ORDERED: ATENOLOL 25 MG TAB PO SCH (09:00)
[2017-07-23] MEDS ORDERED: ROSUVASTATIN CALCIUM 10 MG TAB PO SCH (09:00)
[2017-07-23] MEDS ORDERED: metFORMIN SR 500 MG TAB PO SCH (09:00)
[2017-07-23] MEDS ORDERED: ASCORBIC ACID 500 MG TAB PO SCH (09:00)
[2017-07-23] MEDS ORDERED: LISINOPRIL 40 MG TAB PO SCH (09:00)
[2017-07-23] MEDS ORDERED: ENOXAPARIN 40 MG/0.4 ML SYR SC SCH (09:00)
[2017-07-23 11:45] VITALS: BP 118/53
--- NOTE | 2017-07-23 11:46 | ASMTCMCOM ---
CM Note CM Note Notes: Pt had surgery for spinal stenosis, resides alone. PT/OT clear pt for home. Pt medically stable for d/c, no CM d/c needs identified. Date Signed: 07/23/2017 11:46 AM Electronically Signed By:JACKY Schulz
--- NOTE | 2017-07-23 13:05 | HOSPPROG ---
Hospitalist Progress Note Assessment/Plan: S/P Laminectomy - POD #2, d/c'ing per neurosurg with close f/u planned. CKD - Cr up to 2.3 yest, down to 2.0 this am, baseline 1.4-1.5. Holding HCTZ and Lisinopril for now, see below. Hypertension - sbp 90's-110 here. As above, hold juan and hctz until f/u with nephrology. Discussed plan with Dr. Drummond. Pt to call her office if SBP >145. He'll continue Atenolol and resume lisinopril / hctz at direction of Dr. Drummond DM type 2 - well controlled. Cont current meds. BETI - cont home cpap Full code Dispo - discharging per neurosurg. Med rec updated regarding anti-hypertensive changes and f/u plans. Subjective: Pt doing well. No CP or SOB. Pain controlled. No complaints. Objective: Vital Signs Temp Pulse Resp BP Pulse Ox 37.0 C 78 14 118/53 L 94 07/23/17 11:44 07/23/17 11:44 07/23/17 11:44 07/23/17 11:44 07/23/17 11:44 Microbiology 07/22/17 08:30 Gram Stain - Final Other - Swab Laboratory Results 07/23/17 04:39 07/23/17 04:39 07/22/17 07/23/17 07/24/17 05:59 05:59 05:59 Intake Total 3380 Output Total 845 75 Balance 2535 -75 - Physical Exam Constitutional: no apparent distress Eyes: PERRL Ears, Nose, Mouth, Throat: moist mucous membranes Cardiovascular: regular rate and rhythym, no murmur, rub, or gallop Respiratory: no respiratory distress, clear to auscultation Gastrointestinal: normoactive bowel sounds, soft, non-tender abdomen Skin: warm Musculoskeletal: full muscle strength Neurologic: AAOx3 Psychiatric: interacting appropriately ICD10 Worksheet Patient Problems: Problems Problem Status Onset Lumbar radicular pain Acute Lumbar stenosis Acute
[2017-07-27] MEDS ORDERED: Dulaglutide [Trulicity] 1.5 MG SQ SCH (09:00)
== END 2017-07-23 13:28 | disposition home or self-care (01) ==
LOC: F3N 05-01 09:20 → UNDOADMIN 05-01 09:20 → F3N 07-22 05:35 → EDSTATUS 07-22 09:15 → F3N 07-22 11:37
PROVIDERS: ADMIT Neurological Surgery; ATTEND Neurological Surgery
PROC: 4A1004G Monitoring of Central Nervous Electrical Activity, Intraoperative, Open Approach (ICD-10-PCS; principal; 2017-07-22 07:30)
PROC: 0SB00ZZ Excision of Lumbar Vertebral Joint, Open Approach (ICD-10-PCS; principal; 2017-07-22 07:30)
PROC: 00NY0ZZ Release Lumbar Spinal Cord, Open Approach (ICD-10-PCS; principal; 2017-07-22 07:30)
PROC: BR191ZZ Fluoroscopy of Lumbar Spine using Low Osmolar Contrast (ICD-10-PCS; 2017-07-22 07:30)
DX: M48.062 Spinal stenosis, lumbar region with neurogenic claudication (principal); M47.816 Spondylosis without myelopathy or radiculopathy, lumbar region; E11.22 Type 2 diabetes mellitus with diabetic chronic kidney disease; I12.9 Hypertensive chronic kidney disease with stage 1 through stage 4 chronic kidney disease, or unspecified chronic kidney disease; E78.5 Hyperlipidemia, unspecified; N18.3 Chronic kidney disease, stage 3 (moderate); G47.33 Obstructive sleep apnea (adult) (pediatric); I47.1 Supraventricular tachycardia; E66.9 Obesity, unspecified; Z68.39 Body mass index [BMI] 39.0-39.9, adult; I25.10 Atherosclerotic heart disease of native coronary artery without angina pectoris; Z79.4 Long term (current) use of insulin
CPT/HCPCS: 63047; 63048; 76001; 97161; 97166; 97535; G0378; J0171; J0690; J1100; J1650; J1815; J2250; J2370; J2405; J2704; J2710; J2780; J3010